=== PATIENT | female | born 1975 | race Caucasian/White ===

== ENCOUNTER → 2025-04-04 | Day surgery (SDC) | payer BC ==
[2025-04-01 09:59] LABS: BASOPHILS % 0.4 % (0.0-1.0); EOSINOPHILS % 3.9 % (0.0-6.0); LYMPHOCYTES % 29.3 % (18.0-39.1); MONOCYTES % 7.7 % (4.4-11.3); NEUTROPHILS % 58.5 % (38.7-80.0); RED CELL DISTRIBUTION WIDTH 11.9 % (11.7-14.4)
[2025-04-01 10:28] LABS: EST GLOMERULAR FILTRATION RATE 63.0 ML/MIN (>=60)
[~2025-04-04] MED LIST: ACETAMINOPHEN 1000 MG/100 ML 100 ML IV ONE; ANDROGEL75 G1; BUPIVACAINE 0.5%/EPI 30 ML SDV INJ ONE; DEXAMETHASONE SOD PHOS INJ 4 MG/ML SDV ONE; EVENING PRIMRO500 M1; FENTANYL CITRATE/PF 100MCG/2 ML INJ ONE; HYDROCODONE/APAP 7.5MG-325MG 1 EA TAB ONE; LIDOCAINE HCL 2% LOCAL INJ 5 ML SDV VIAL INJ ONE; MIDAZOLAM HCL 2 MG/2 ML VIAL ONE; MOUNJARO2.5 MG/0.5 SQ; NP THYROID60 MG PO; ONDANSETRON HCL INJ 2MG/ML 2ML 2 MG/ML VIAL ONE; PROGESTERONE200 MG; PROPOFOL IV EMULSION 10 MG/ML 20 ML VIAL ONE
[2025-04-04] MEDS: CEFAZOLIN SODIUM 2 GM ONE (10:26)
[2025-04-04] MEDS: LACTATED RINGER'S 1,000 ML ONE (10:26)
[2025-04-04 11:51] VITALS: TEMP 97.4
[2025-04-04] MEDS: HYDROMORPHONE 1MG/1ML INJ ONE ×2 (12:05→12:25)
[2025-04-04] MEDS: DIPHENHYDRAMINE HCL INJ 50 MG/ML VIAL ONE (12:45)
[2025-04-04 13:05] VITALS: BP 118/78; PULSE 60; RESP 16; O2SAT 97
== END | disposition home or self-care (01) ==
LOC: OR 09:00
PROVIDERS: ATTEND Orthopaedic Surgery
DX: S83.232A Complex tear of medial meniscus, current injury, left knee, initial encounter (principal); S82.015A Nondisplaced osteochondral fracture of left patella, initial encounter for closed fracture; S83.282A Other tear of lateral meniscus, current injury, left knee, initial encounter; M22.42 Chondromalacia patellae, left knee; M65.162 Other infective (teno)synovitis, left knee; M67.52 Plica syndrome, left knee; E03.9 Hypothyroidism, unspecified; F41.9 Anxiety disorder, unspecified; M54.2 Cervicalgia; M54.9 Dorsalgia, unspecified; V89.2XXA Person injured in unspecified motor-vehicle accident, traffic, initial encounter; Z01.810 Encounter for preprocedural cardiovascular examination; Z01.812 Encounter for preprocedural laboratory examination; Z01.818 Encounter for other preprocedural examination; Z79.899 Other long term (current) drug therapy; Z79.85 Long-term (current) use of injectable non-insulin antidiabetic drugs
CPT/HCPCS: 27599; 29881; 29999; 36415; 71046; 80053; 81025; 85025; 93005; C1713 ×2; J0131; J1100; J1171; J1200; J2003; J2250; J2405; J2704; J3010; J7121; 76000